=== PATIENT | female | born 1980 | race Caucasian/White ===

== ENCOUNTER 2025-11-03 19:41 | Emergency (ER) | payer OTHER, SELFPAY ==
[2025-11-03 19:42] VITALS: BP 123/92
[2025-11-03 20:03] LABS: Urine Character Clear (Clear)
[2025-11-03 20:04] LABS: Hematocrit 40.4 % (37.0-47.0); Hemoglobin 13.7 g/dL (12.0-16.0); Mean Corp Hgb Conc. 33.9 g/dL (33.0-37.0); Mean Corpuscular Volume 95.7 fL (81.0-99.0); Nucleated Red Blood Cells % 0 %; Platelet Count 264 10^3/uL (130-400); Red Cell Dist. Width 12.9 % (11.5-14.5)
[2025-11-03 20:52] LABS: ALT (SGPT) 30 U/L (0-35); AST (SGOT) 28 U/L (14-36); Albumin 4.8 g/dl (3.5-5.0); Alkaline Phosphatase 46 U/L (38-126); Blood Urea Nitrogen 9 mg/dl (7-17); Calcium 9.6 mg/dl (8.4-10.2); Carbon Dioxide 21 mmol/L (22-30); Chloride 100 mmol/L (98-107); Glucose 106 mg/dl (70-99); Potassium 4.2 mmol/L (3.5-5.1); Sodium 131 mmol/L (135-145); Total Protein 7.2 g/dl (6.3-8.2); eGFR > 60.00
[2025-11-03] MEDS: BENADRYL 25 MG IV (23:20)
[2025-11-03] MEDS: NSS 1000 IV (23:32)
[2025-11-03 23:53] LABS: HCG, Serum Qualitative Screen Negative
[2025-11-03 23:56] LABS: Acetaminophen < 10 ug/ml (10-30); Salicylate < 1.0 mg/dl (2.0-20.0)
[2025-11-04] MEDS: BENADRYL 25 MG IV (01:50)
[2025-11-04] MEDS: TYLENOL 1000 MG PO (06:57)
[2025-11-04 07:02] VITALS: BP 115/74; BMI 25.9
--- NOTE | 2025-11-04 07:04 | ED.GENMED ---
History of Present Illness
General
Chief Complaint: Change in Mental Status
Source: patient
Exam Limitations: none
Time Seen by Provider: 11/03/25 22:56
Nursing documentation reviewed up to this point in time: agreed with
History of Present Illness
History of Present Illness:
Note:
CHIEF COMPLAINT(S)
Delirium and headache
HISTORY OF PRESENT ILLNESS
The patient is a 45-year-old female who presented with sudden onset delirium and inability to stop moving upon sitting down. The patient described the sensation as 'delirious' and mentioned an inability to see straight or recognize immediate
surroundings, such as failing to identify the dining room, although aware it was there. These symptoms began before the occurrence of a headache, which started while in the waiting room. The patient denied any recent similar occurrences, pain
besides the headache, or experiencing flushes, auditory, or visual hallucinations but did mention blurred vision and confusion. The delirium was not associated with any caffeine or [id number] medication use, and the patient had only consumed a
turkey sandwich.
The patient has a previous history of panic attacks but insisted this episode felt different, describing symptoms as 'delirious,' 'so high,' and expressing a fear of what might happen next. There was a concern about potential substance exposure, as
the patient suspected something might have been dropped into her water bottle, although she denied any illicit drug use, emphasizing that drugs were not 'their thing.'
Medical review revealed normal blood work values, including a blood glucose level of 106 mg/dL. Basic screenings for substance presence were negative. A potential dystonic reaction from long-term medication use was considered as a contributing
factor.
PHYSICAL EXAM
General: Alert, oriented, cooperative, appropriate mood & affect, no acute distress observed at the time of examination.
Skin: Warm, dry.
Head: Normocephalic, atraumatic.
Neck: Supple, trachea midline.
Eye, Ears, Nose, Mouth, and Throat: Oral mucosa moist.
Cardiovascular: Normal peripheral perfusion, no edema.
Respiratory: Respirations are non-labored.
Gastrointestinal: Abdomen nondistended.
Back: Normal range of motion, normal alignment.
Musculoskeletal: Normal range of motion, normal strength.
Neurological: Alert and oriented to person, place, time, and situation, no focal neurological deficit observed.
PROBLEM LIST
Acute Problems:
- Delirium
- Headache
PLAN
Administer fluids to the patient for hydration purposes. Consider a trial treatment to counteract potential dystonic reactions due to long-term medication use. Monitor the patient for any changes in symptoms, with a particular focus on improvement
following the treatment. The patient is advised to try sleeping when possible, and will be kept under observation on a monitor.
DIFFERENTIAL DIAGNOSIS
The Differential Diagnosis includes, in no particular order and is not limited to:
1. Acute anxiety or panic attack
2. Medication-induced dystonic reaction
3. Substance-induced delirium
4. Transient cerebral ischemia
5. Metabolic disturbance (e.g., hypoglycemia)
6. Migraine with aura
7. Vestibular disturbance
8. Dehydration
9. Acute stress reaction
10. Neurological event (e.g., seizure or transient ischemic attack)
Disposition:
SUMMARY OF ENCOUNTER
The patient, a 45-year-old female, presented to the emergency department with symptoms of delirium and confusion. She reported that she has a history of taking bupropion and recently took ciprofloxacin for an eye infection. During her visit, the
patient was administered diphenhydramine (Benadryl), which resolved her delirium symptoms. She denied that her episode was related to anxiety and noted that new potential factors may involve the suspicion of an unknown substance added to her water.
Laboratory tests returned normal.
DISPOSITION
The patient is to be discharged home as she expressed feelings of improvement and did not wish to be admitted for further observation.
ASSESSMENT
The symptoms resolved following diphenhydramine administration, suggesting a potential allergic or dystonic reaction possibly linked to her current medications or external factors.
PLAN
The patient was advised to find a local physician following her recent move from [place] since her current psychiatrist remains in [place]. Antihistamine eye drops were prescribed for relieving her eye symptoms.
INDEPENDENT REVIEW OF LABS AND INTERPRETATION OF TESTS
My independent review of the lab work indicates normal values.
PATIENT EDUCATION AND COUNSELING
The patient was counseled about the potential causes of her episode and advised on the need to seek local medical support. She was informed about the plan to use antihistamine eye drops for relief.
FOLLOW-UP INSTRUCTIONS
The patient is advised to establish care with a local physician as soon as possible, considering her recent relocation.
MEDICATION RECONCILIATION
1. Bupropion
2. Ciprofloxacin (eye drops)
3. Diphenhydramine (administered during the visit)
4. Antihistamine eye drops prescribed for discharge
MEDICAL DECISION MAKING
-Complexity of Data Reviewed: Chronic conditions affecting care include a history of panic attacks and use of bupropion. Differential diagnosis considered includes: acute anxiety or panic attack, medication-induced dystonic reaction,
substance-induced delirium, transient ischemia, metabolic disturbance, migraine with aura, vestibular disturbance, dehydration, acute stress reaction, and neurological events.
-Data:
Category 1
Independent review of lab work indicating normal results.
Category 3
Consideration of Admission/Observation: Escalation of care including admission/observation was considered given the complexity and risk of the patients presenting complaint. However, ultimately the patient is safe for outpatient management with
close follow-up. Reasoning includes reassuring work-up, absence of acute life-threatening processes, controlled symptoms upon reevaluation, stable vitals, and patient reliability for follow-up.
-Risk:
Prescription medication was prescribed, which includes antihistamine eye drops.
DIAGNOSIS
Medication-induced dystonic reaction (ICD-10: G24.0)
Allergic conjunctivitis (ICD-10: H10.45)
Review of Systems
Review of Systems
Allergies reviewed?: Yes
Psychiatric: Reports anxiety
Phy Exam
Physical Exam
Physical Exam:
.
Course
Orders/Labs/Results
Orders:
Orders
11/03/25 19:48
CT Head W/o Iv Contrast Urgent
Comment:
Reason For Exam: change in mental status
11/03/25 19:55
Acetaminophen Urgent
Comment: ADD ON
Complete Blood Count/With Diff Urgent
Comprehensive Metabolic Panel Urgent
HCG, Serum Qualitative Screen Urgent
Comment: ADD ON
Salicylate Urgent
Urinalysis Urgent
Date Specimen was Collected: 11/03/25
Time Specimen was Collected: 19:48
Urine Drug Abuse Screen Urgent
Date Specimen was Collected: 11/03/25
Time Specimen was Collected: 19:48
11/03/25 23:12
0.9% Sodium Chloride 1000 ml [Nss] 1,000 ml IV BOLUS
Diphenhydramine [Benadryl] 25 mg IV NOW STA
11/03/25 23:22
Add On- LAB Urgent
Tests Added?: serum hcg, asa, acetaminophen
11/04/25 01:43
Diphenhydramine [Benadryl] 50 mg .ROUTE .STK-MED ONE
11/04/25 01:50
Diphenhydramine [Benadryl] 25 mg IV NOW STA
11/04/25 06:43
Acetaminophen [Tylenol] 1,000 mg PO NOW STA
Abnormal Lab Results
11/03/25
19:55
MCH 32.5 H pg
(27.0-31.0)
Absolute Monos (auto) 0.7 H 10^3/uL
(0.1-0.6)
Sodium 131 L mmol/L
(135-145)
Carbon Dioxide 21 L mmol/L
(22-30)
Glucose 106 H mg/dl
(70-99)
Salicylates < 1.0 L mg/dl
(2.0-20.0)
Acetaminophen < 10 L ug/ml
(10-30)
11/03/25 19:55
11/03/25 19:55
Vital Signs
Initial and Last Documented VS:
Initial Vital Signs
Temp Pulse Resp BP Pulse Ox
98.6 F 120 20 123/92 99
11/03/25 19:42 11/03/25 19:42 11/03/25 19:42 11/03/25 19:42 11/03/25 19:42
Last Documented Vital Signs
Temp Pulse Resp BP Pulse Ox
98.2 F 82 20 115/74 99
11/04/25 07:02 11/04/25 07:02 11/04/25 07:02 11/04/25 07:02 11/04/25 07:06
*Pulse Oximetry
SaO2: 99
Oxygen Mode of Delivery: Room air
Patient hypoxic: no
*Critical Care Note
Total Time (30-74mins, 75-104mins- exclusive of procedures): Not Applicable
ED Attending Note
-
Portions of this chart may have been created with voice recognition software.� Occasional wrong word or��sound alike� substitutions may have occurred due to the inherent limitations of voice recognition software.
Discharge Plan
Departure
Patient Disposition: Home (Routine Discharge)
Patient with high blood pressure during this ER visit?: Yes
Condition: Good
Discharge Problem:
Medication reaction
Instructions: Side effects from medicines in adults - ED (DC), BLOOD PRESSURE
Prescriptions:
New
ketotifen fumarate 0.025 % (0.035 %) drops
1 drp ophthalmic (eye) BID PRN (Reason: allergy symptoms) 4 Days Qty: 5 0RF
Referrals:
[facility] [Outside]
UNKNOWN - PT DOES,NOT KNOW [Family Provider]
Galen Antonio MD [Active, Psychiatry]
Activity Restrictions/Additional Instructions:
Thank You for choosing [facility].
It was a pleasure meeting you and taking part in your care. We hope for your continued healing and wellness.
Please read discharge instructions in their entirety. However, they are for general education and may not describe your exact diagnosis at discharge. Information on your ER visit and medical conditions were discussed with you along with appropriate
follow up information...
If indicated, please take your medications as instructed and indicated on discharge paperwork.
Please schedule a follow up appointment as directed. Call to schedule an appointment
Please return to the emergency department with ANY change in, persisting, or worsening of symptoms. If any of your symptoms do not improve, or persist, or become more severe within 6-12 hours, please return to the emergency department for further
care.
Please return to the emergency department if you develop a headache, neck pain/stiffness, fever greater than 100.4F, chest pain, shortness of breath, persistent nausea, vomiting, slurred speech, difficulty walking, numbness/tingling, weakness, signs
of infection or any other symptoms that are worrisome to you.
If you have any questions or concerns please do not hesitate to call the Hospital at .
Interventions
Interventions:
*General Assessment Last Done: 11/03/25 19:46
*Neglect/Abuse Screening Last Done: 11/03/25 19:46
*ED COVID-19 Vaccine History Last Done: 11/03/25 19:46
*ED Influenza Vaccine History Last Done: 11/03/25 19:46
[facility] Fall Risk Assessment Tool Last Done: 11/03/25 23:15
*Risk Screen - Suicide (C-SSRS) Last Done: 11/03/25 19:46
*Nursing Disposition Last Done: 11/04/25 07:03
ED- Pulmonary Assessment Last Done: 11/04/25 07:04
ED-Psychological Assessment Last Done: 11/04/25 00:30
ED- Neurological Assessment Last Done: 11/04/25 00:30
ED- Cardiac Assessment Last Done: 11/04/25 07:03
ED Swallowing Screen Last Done: 11/04/25 07:02
Discharge Date and Time
Discharge Date/Time: 11/04/25 07:04
Print Language: POLISH
== END 2025-11-04 07:04 | disposition home or self-care (01) ==
LOC: EMR 19:41
PROVIDERS: Student in an Organized Health Care Education/Training Program; EMERGENCY PHYSICIAN Student in an Organized Health Care Education/Training Program
DX: G24.09 Other drug induced dystonia (principal); T50.995A Adverse effect of other drugs, medicaments and biological substances, initial encounter; X58.XXXA Exposure to other specified factors, initial encounter; H10.10 Acute atopic conjunctivitis, unspecified eye
CPT/HCPCS: 96374; 96376; 96361; 99284; 70450; 80053; 80143; 80179; 80306; 81003; 84703; 85025